=== PATIENT | female | born 1950 | race Two or more races ===

== ENCOUNTER 2024-12-17 10:12 | Emergency (ER) | payer OTHER ==
[2024-12-17 10:57] VITALS: BP 118/70; PULSE 76; RESP 16; TEMP 98.2; BMI 25.4
[2024-12-17 11:45] LABS: BASO % 1.1 % (0-2.0); EOS % 1.6 % (0-4.5); HEMOGLOBIN 9.9 GM/dL (10.7-15.3); LYMPH % 19.2 % (8-40); MCH 25.1 pg (25.7-33.7); MEAN CELL VOLUME 78.2 fl (80-96); MEAN PLT VOLUME 8.4 fl (7.5-11.1); MONO % 9.7 % (3.8-10.2); NEUT % 68.4 % (42.8-82.8); PLATELET COUNT 330 10^3/uL (134-434); RBC 3.97 M/mm3 (3.60-5.2); RDW 15.8 % (11.6-15.6); WHITE BLOOD COUNT 5.4 K/mm3 (4.0-10.0)
[2024-12-17] MEDS ORDERED: ONDANSETRON 4 MG/2 ML VIAL ONE (11:45)
[2024-12-17] MEDS ORDERED: ACETAMINOPHEN 500 MG TABLET (FP) ONE (11:45)
[2024-12-17] MEDS: ACETAMINOPHEN 500 MG TABLET (FP) PO ONE (11:52)
[2024-12-17] MEDS: ONDANSETRON 4 MG/2 ML VIAL IVPUSH ONE (11:52)
[2024-12-17 12:17] LABS: POTASSIUM 3.8 mmol/L (3.5-5.1)
[2024-12-17 12:20] LABS: ALBUMIN 3.1 g/dl (3.4-5.0); BLOOD UREA NITROGEN 10.4 mg/dL (7-18)
[2024-12-17 12:23] LABS: CREATININE 0.6 mg/dL (0.55-1.3)
[2024-12-17 12:24] LABS: BILIRUBIN,TOTAL 0.3 mg/dL (0.2-1); TOT PROT 7.5 g/dl (6.4-8.2)
== END 2024-12-17 14:25 | disposition home or self-care (01) ==
LOC: JER 10:12
PROC: 3E033GC Introduction of Other Therapeutic Substance into Peripheral Vein, Percutaneous Approach (ICD-10-PCS; principal; 2024-12-17)
DX: R11.2 Nausea with vomiting, unspecified (principal); R50.9 Fever, unspecified; M79.10 Myalgia, unspecified site; R09.81 Nasal congestion; B34.9 Viral infection, unspecified
CPT/HCPCS: 0241U-QW; 36415; 71045-TC-FY; 80053; 82962; 84484; 85025; 93005; 93010; 99285-25

== ENCOUNTER 2025-02-18 23:53 | Inpatient (IN) | payer OTHER ==
[2025-02-19 00:45] LABS: ABSOLUTE IMMATURE GRANULOCYTES 0.02 x10^3/uL (0.0-0.031); BASOPHILS # 0.04 x10^3/uL (0.01-0.08); EOSINOPHIL % 0.2 % (0.7-5.8); EOSINOPHILS # 0.01 x10^3/uL (0.04-0.36); HEMATOCRIT 29.9 % (34.1-44.9); HEMOGLOBIN 9.6 g/dL (11.2-15.7); MCHC 32.1 g/dl (32.2-35.5); MEAN CELL VOLUME 78.1 fl (79.4-94.8); MEAN PLT VOLUME 11.4 fl (9.4-12.3); MONOCYTE # 0.19 x10^3/uL (0.24-0.86); MONOCYTE % 4.3 % (4.7-12.5); PLATELET COUNT 312 x10^3/uL (182-369); RDW 15.7 % (12.4-16.6)
[2025-02-19] MEDS ORDERED: ACETAMINOPHEN INJECTION 100 ML ONE (00:52)
[2025-02-19] MEDS ORDERED: FAMOTIDINE 20 MG/50 ML IVPB 20 MG/50 ML MG IVPB ONE (00:52)
[2025-02-19 00:54] LABS: VENOUS BASE EXCESS -0.5 mmol/L (-2-2); VENOUS PCO2 28.3 mmHg (38-52); VENOUS PH 7.505 (7.310-7.410)
[2025-02-19] MEDS ORDERED: ONDANSETRON 4 MG/2 ML VIAL ONE (00:54)
[2025-02-19] MEDS: ONDANSETRON 4 MG/2 ML VIAL IVPB ONE (01:08)
[2025-02-19] MEDS: ACETAMINOPHEN 1000 MG/100 ML BAG IVPB ONE (01:08)
[2025-02-19] MEDS: SODIUM CHLORIDE 0.9% 500 ML INFUS.BAG IV ONE ×2 (01:20→01:55)
[2025-02-19] MEDS: FAMOTIDINE 20 MG/50 ML IVPB 20 MG/50 ML MG IVPB ONE (01:20)
[2025-02-19 01:29] LABS: INR 1.13 (0.83-1.09); LACTIC ACID 3.1 mmol/L (0.4-2.0); PROTHROMBIN TIME (PATIENT) 12.4 SEC (9.7-13.0)
[2025-02-19 01:31] LABS: ACTIVATED PTT 25.6 SECONDS (25.2-36.5)
[2025-02-19 01:32] LABS: POTASSIUM 3.9 mmol/L (3.5-5.1)
[2025-02-19 01:35] LABS: ALBUMIN 3.4 g/dl (3.4-5.0); BLOOD UREA NITROGEN 28.9 mg/dL (7-18); MAGNESIUM 1.6 mg/dL (1.8-2.4)
[2025-02-19 01:38] LABS: CREATININE 4.6 mg/dL (0.55-1.3)
[2025-02-19 01:39] LABS: BILIRUBIN,TOTAL 0.4 mg/dL (0.2-1)
[2025-02-19 01:43] LABS: N-TERMINAL BNP 3044.8 pg/ml (5-450)
[2025-02-19 03:40] LABS: EPI CELLS 7 /uL (0-25.1); HYALINE CASTS 0 /uL (0-3.1); PH,URINE 6.5 (5.0-8.0); URINE APPEARANCE CLEAR; URINE BACTERIA 18 /uL (0-1359); URINE BILIRUBIN NEGATIVE (NEGATIVE); URINE COLOR YELLOW; URINE GLUCOSE (UA) 3+ (NEGATIVE); URINE KETONE TRACE (NEGATIVE); URINE LEUK ESTERASE TRACE (NEGATIVE); URINE NITRITE NEGATIVE (NEGATIVE); URINE PROTEIN NEGATIVE (NEGATIVE); URINE RBC 17 /uL (0-23.9); URINE UROBILINOGEN 0.2 mg/dL (0.2-1.0); URINE WBC 19 /uL (0-25.8)
[2025-02-19] MEDS ORDERED: METOCLOPRAMIDE HCL INJECTION 10 MG/2 ML VIAL ONE (03:40)
[2025-02-19] MEDS: METOCLOPRAMIDE HCL INJECTION 10 MG/2 ML VIAL IVPB ONE (03:46)
[2025-02-19 04:05] LABS: POTASSIUM 3.5 mmol/L (3.5-5.1)
[2025-02-19 04:07] LABS: CALCIUM 9.3 mg/dL (8.5-10.1)
[2025-02-19 04:08] LABS: BLOOD UREA NITROGEN 27.5 mg/dL (7-18); MAGNESIUM 1.5 mg/dL (1.8-2.4)
[2025-02-19 04:11] LABS: CREATININE 4.4 mg/dL (0.55-1.3)
[2025-02-19 04:12] LABS: BILIRUBIN,TOTAL 0.3 mg/dL (0.2-1); TOT PROT 7.2 g/dl (6.4-8.2)
[2025-02-19 04:27] LABS: LACTIC ACID 2.1 mmol/L (0.4-2.0)
[2025-02-19 06:00] VITALS: BMI 29.9
[2025-02-19] MEDS ORDERED: ACETAMINOPHEN 325 MG TABLET (FP) PO PRN (06:10)
[2025-02-19 08:35] LABS: ABSOLUTE IMMATURE GRANULOCYTES 0.03 x10^3/uL (0.0-0.031); BASOPHILS # 0.03 x10^3/uL (0.01-0.08); HEMATOCRIT 33.3 % (34.1-44.9); HEMOGLOBIN 10.6 g/dL (11.2-15.7); MCHC 31.8 g/dl (32.2-35.5); MEAN PLT VOLUME 11.6 fl (9.4-12.3); MONOCYTE # 0.14 x10^3/uL (0.24-0.86); MONOCYTE % 3.5 % (4.7-12.5); PLATELET COUNT 326 x10^3/uL (182-369); RDW 15.7 % (12.4-16.6)
[2025-02-19 09:07] LABS: POTASSIUM 3.8 mmol/L (3.5-5.1)
[2025-02-19 09:15] LABS: CALCIUM 10.2 mg/dL (8.5-10.1); MAGNESIUM 1.6 mg/dL (1.8-2.4)
[2025-02-19 09:16] LABS: ALBUMIN 3.6 g/dl (3.4-5.0); BLOOD UREA NITROGEN 29.5 mg/dL (7-18)
[2025-02-19 09:18] LABS: CREATININE 4.5 mg/dL (0.55-1.3)
[2025-02-19 09:19] LABS: PHOSPHOROUS 5.6 mg/dL (2.5-4.9); TOT PROT 8.4 g/dl (6.4-8.2)
[2025-02-19 09:21] LABS: BILIRUBIN,TOTAL 0.4 mg/dL (0.2-1)
[2025-02-19] MEDS: PANTOPRAZOLE SODIUM 40 MG VIAL IVPUSH SCH (10:56)
[2025-02-19] MEDS: MAGNESIUM SULFATE IN WATER 2 GM/50 ML IVPB IVPB ONE ×2 (10:57→14:47)
[2025-02-19] MEDS: SODIUM CHLORIDE 1,000 ML IV SCH (11:01)
[2025-02-19] MEDS: INSULIN ASPART SLIDING SCALE (NOVOLOG) 1 VIAL SQ SCH (11:44)
[2025-02-19] MEDS: MAGNESIUM OXIDE 400 MG TABLET (FP) PO ONE (14:41)
[2025-02-19] MEDS: ONDANSETRON 4 MG/2 ML VIAL IVPUSH PRN (14:47)
[2025-02-19] MEDS: HEPARIN NA (PORCINE) 5,000 UNITS/ML 1ML VIAL SQ SCH (14:47)
[2025-02-19] MEDS: MELATONIN 5 MG TABLETS PO PRN (23:06)
[2025-02-20] MEDS ORDERED: SODIUM CHLORIDE 500 ML IV STA (05:23)
[2025-02-20] MEDS: SODIUM CHLORIDE 0.9% 500 ML INFUS.BAG IV ONE (05:37)
[2025-02-20] MEDS: LEVOTHYROXINE NA 25 MCG TABLET (FP) PO SCH (06:11)
[2025-02-20 08:32] LABS: ABSOLUTE IMMATURE GRANULOCYTES 0.02 x10^3/uL (0.0-0.031); BASOPHILS # 0.06 x10^3/uL (0.01-0.08); EOSINOPHIL % 3.1 % (0.7-5.8); EOSINOPHILS # 0.11 x10^3/uL (0.04-0.36); HEMATOCRIT 25.5 % (34.1-44.9); MCHC 31.4 g/dl (32.2-35.5); MEAN CELL VOLUME 78.9 fl (79.4-94.8); MONOCYTE # 0.39 x10^3/uL (0.24-0.86); MONOCYTE % 10.8 % (4.7-12.5); PLATELET COUNT 245 x10^3/uL (182-369); RDW 16.1 % (12.4-16.6); Reticulocyte % 0.99 % (0.5-1.7)
[2025-02-20 08:54] LABS: POTASSIUM 3.1 mmol/L (3.5-5.1)
[2025-02-20 08:58] LABS: BLOOD UREA NITROGEN 29.1 mg/dL (7-18); CALCIUM 9.1 mg/dL (8.5-10.1); MAGNESIUM 2.4 mg/dL (1.8-2.4)
[2025-02-20 09:01] LABS: CREATININE 3.8 mg/dL (0.55-1.3); PHOSPHOROUS 4.4 mg/dL (2.5-4.9)
[2025-02-20] MEDS: ANASTROZOLE 1 MG TABLET PO SCH (09:01)
[2025-02-20] MEDS: traZODone HCL 100 MG TABLET (FP) PO SCH (09:01)
[2025-02-20] MEDS: FAMOTIDINE 20 MG TABLET PO SCH (09:01)
[2025-02-20 09:02] LABS: ALBUMIN 2.7 g/dl (3.4-5.0)
[2025-02-20 09:03] LABS: BILIRUBIN,TOTAL 0.3 mg/dL (0.2-1)
[2025-02-20 09:19] LABS: TOT PROT 6.2 g/dl (6.4-8.2)
[2025-02-20] MEDS: POTASSIUM CHLORIDE TABS 20 MEQ TABLET.ER (FP) PO ONE (09:59)
[2025-02-20] MEDS ORDERED: LOSARTAN POTASSIUM 50 MG TABLET PO SCH (10:00)
[2025-02-20] MEDS ORDERED: HYDROCHLOROTHIAZIDE 12.5 MG CAPSULE (FP) PO SCH (10:00)
[2025-02-20 17:01] LABS: EPI CELLS 12 /uL (0-25.1); HYALINE CASTS 0 /uL (0-3.1); PH,URINE 6.5 (5.0-8.0); URINE APPEARANCE CLEAR; URINE BACTERIA 16 /uL (0-1359); URINE BILIRUBIN NEGATIVE (NEGATIVE); URINE COLOR YELLOW; URINE GLUCOSE (UA) 1+ (NEGATIVE); URINE KETONE NEGATIVE (NEGATIVE); URINE LEUK ESTERASE TRACE (NEGATIVE); URINE NITRITE NEGATIVE (NEGATIVE); URINE PROTEIN NEGATIVE (NEGATIVE); URINE RBC 19 /uL (0-23.9); URINE UROBILINOGEN 0.2 mg/dL (0.2-1.0); URINE WBC 39 /uL (0-25.8)
[2025-02-20] MEDS: METOCLOPRAMIDE HCL INJECTION 10 MG/2 ML VIAL IM ONE (20:34)
[2025-02-20] MEDS: ATORVASTATIN CA 20 MG TABLET (FP) PO SCH (21:53)
[2025-02-20 22:43] VITALS: RESP 18
[2025-02-21] MEDS: ASPIRIN 81 MG CHEWABLE TABLETS PO SCH (09:04)
[2025-02-21] MEDS: amLODIPine BESYLATE 5 MG TABLET (FP) PO SCH (09:04)
[2025-02-21 10:45] LABS: HEMATOCRIT 29.4 % (34.1-44.9); HEMOGLOBIN 9.1 g/dL (11.2-15.7); MEAN PLT VOLUME 11.3 fl (9.4-12.3); PLATELET COUNT 297 x10^3/uL (182-369); RDW 15.7 % (12.4-16.6)
[2025-02-21 11:06] LABS: POTASSIUM 3.2 mmol/L (3.5-5.1)
[2025-02-21 11:09] LABS: BLOOD UREA NITROGEN 22.6 mg/dL (7-18); CALCIUM 9.3 mg/dL (8.5-10.1)
[2025-02-21 11:12] LABS: CREATININE 3.1 mg/dL (0.55-1.3)
[2025-02-21 11:14] LABS: BILIRUBIN,TOTAL 0.3 mg/dL (0.2-1); TOT PROT 6.7 g/dl (6.4-8.2)
[2025-02-21] MEDS: SODIUM CHLORIDE 1,000 ML IV SCH (11:44)
[2025-02-21] MEDS: POTASSIUM CHLORIDE TABS 20 MEQ TABLET.ER (FP) PO SCH (12:25)
[2025-02-21] MEDS: METOCLOPRAMIDE HCL INJECTION 10 MG/2 ML VIAL IVPUSH PRN (21:27)
[2025-02-22 09:21] LABS: ABSOLUTE IMMATURE GRANULOCYTES 0.02 x10^3/uL (0.0-0.031); BASOPHILS # 0.06 x10^3/uL (0.01-0.08); EOSINOPHIL % 2.6 % (0.7-5.8); EOSINOPHILS # 0.11 x10^3/uL (0.04-0.36); HEMATOCRIT 28.1 % (34.1-44.9); HEMOGLOBIN 8.9 g/dL (11.2-15.7); MCHC 31.7 g/dl (32.2-35.5); MEAN CELL VOLUME 78.3 fl (79.4-94.8); MEAN PLT VOLUME 10.4 fl (9.4-12.3); PLATELET COUNT 326 x10^3/uL (182-369); RDW 15.3 % (12.4-16.6)
[2025-02-22 09:44] LABS: POTASSIUM 3.3 mmol/L (3.5-5.1)
[2025-02-22 09:48] LABS: ALBUMIN 2.8 g/dl (3.4-5.0); BLOOD UREA NITROGEN 19.2 mg/dL (7-18); CALCIUM 9.2 mg/dL (8.5-10.1)
[2025-02-22 09:51] LABS: CREATININE 2.3 mg/dL (0.55-1.3)
[2025-02-22 09:53] LABS: BILIRUBIN,TOTAL 0.5 mg/dL (0.2-1); TOT PROT 6.4 g/dl (6.4-8.2)
[2025-02-22] MEDS ORDERED: METOCLOPRAMIDE HCL INJECTION 10 MG/2 ML VIAL IVPUSH PRN ×2 (10:16→10:59)
[2025-02-22] MEDS ORDERED: SIMETHICONE 80 MG TAB.CHEW (FP) PO PRN (10:18)
[2025-02-22] MEDS ORDERED: POTASSIUM CHLORIDE TABS 20 MEQ TABLET.ER (FP) PO ONE (10:45)
[2025-02-22] MEDS: POTASSIUM CHLORIDE TABS 20 MEQ TABLET.ER (FP) PO ONE (13:07)
[2025-02-22 16:58] VITALS: BP 141/70; PULSE 72; TEMP 98.2
[2025-02-22 22:06] LABS: ANTIGLOMERULAR BASEMENT MEN.AB <0.2 units (0.0-0.9)
[2025-02-24 16:07] LABS: C-ANCA <1:20 titer (Neg:<1:20)
== END 2025-02-22 16:55 | disposition home or self-care (01) | DRG 394 ==
LOC: JER 23:53 → JERBED 02-19 03:46 → J6S 02-19 05:40 → OBSVTOIN 02-19 06:04 → J6S 02-19 11:43
PROVIDERS: ADMIT Hospitalist; ATTEND Internal Medicine
DX: K52.1 Toxic gastroenteritis and colitis (principal); E87.20 Acidosis, unspecified; N17.9 Acute kidney failure, unspecified; E11.9 Type 2 diabetes mellitus without complications; I10 Essential (primary) hypertension; I25.10 Atherosclerotic heart disease of native coronary artery without angina pectoris; E78.5 Hyperlipidemia, unspecified; E03.9 Hypothyroidism, unspecified; E83.52 Hypercalcemia; E83.42 Hypomagnesemia; E87.6 Hypokalemia; E86.0 Dehydration; F32.A Depression, unspecified; D50.9 Iron deficiency anemia, unspecified
CPT/HCPCS: 0241U-QW; 36415; 71045-TC-FY; 74176-TC; 80053; 81003; 82150; 82570; 82607; 82728; 82746; 82803; 82962; 83036; 83516; 83520; 83540; 83550; 83605; 83690; 83735; 83880; 83970; 84100; 84155; 84165; 84300; 84443; 84484; 85025; 85027; 85610; 85730; 86038; 86225; 86256; 87070; 87086; 87186; 87205; 93005; 93010; 99285-25; G0378; J0131; J1644